=== PATIENT | male | born 1965 | race Caucasian/White ===

== ENCOUNTER 2023-06-09 14:09 | Emergency (ER) | payer OTHER, SELFPAY ==
[2023-06-09 14:12] VITALS: BP 159/106; PULSE 118; RESP 20; TEMP 36.9; O2SAT 98; BMI 33.9
--- NOTE | 2023-06-09 14:16 | XR_ITS ---
The [address] [address] Patient Name: ELLIS DELUCA MRN: [id number] date: 1965 Sex: M Assigned Patient Location: ER Current Patient Location: ED.MAIN Accession/Order Number: [id number] Exam Date: 06/09/2023 14:44 Report Date: 06/09/2023 15:16 At the request of: ERICA HUTCHINSON Procedure: XR hand LT min 3V PROCEDURE: XR hand LT min 3V HISTORY: left hand laceration COMPARISON: None. FINDINGS: BONES:Thin, small calcification along lateral margin of the head of the 5th proximal phalanx without appreciable donor site. SOFT TISSUES:No visible soft tissue swelling. EFFUSION:None visible. OTHER: Negative. XR/XR hand LT min 3V IMPRESSION: 1. Acute cortical avulsion fracture versus sequela of remote injury along the lateral side of the 5th digit proximal interphalangeal joint. 2. Otherwise no suspicious findings to suggest fracture of the bones of the hand. Electronically authenticated by: LISA CRUZ Date: 06/09/2023 15:16
--- NOTE | 2023-06-09 14:18 | ED.GENADUL1 ---
HPI - General Adult General Chief complaint: Wound/Laceration Stated complaint: LACERATION LEFT HAND Time Seen by Provider: 06/09/23 14:10 Source: patient Mode of arrival: walk-in Limitations: no limitations History of Present Illness HPI narrative: Patient is a 58-year-old male who presents to the emergency department for a laceration to the palm of the left hand. Patient was pushing an engine with his left hand when it became caught and he sustained a large V-shaped laceration to the palm of the left hand. He is right-hand dominant. Unknown last tetanus. Bleeding is well-controlled. No medications taken prior to arrival. No other associated injuries. Related Data Previous Rx's Medication Instructions Recorded cephalexin 500 mg capsule 500 mg PO Q8H 10 days #30 caps 06/09/23 hydrocodone 5 mg-acetaminophen 325 1 tab PO Q6H PRN pain 3 days #12 06/09/23 mg tablet tabs Allergies Allergy/AdvReac Type Severity Reaction Status Date / Time No Known Drug Allergies Allergy Verified 06/09/23 14:16 Review of Systems ROS Constitutional Denies: fever or chills Ears, nose, mouth, and throat Denies: throat pain Cardiovascular Denies: chest pain Respiratory Denies: shortness of breath Gastrointestinal Denies: nausea or vomiting Musculoskeletal Reports: extremity pain; Denies: back pain, extremity swelling or joint pain Integumentary/Breast Denies: rash Neurological Denies: headache Hematologic/Lymphatic Denies: easy bruising or easy bleeding PFSH PFSH Social History Smoking status: Never smoker Exam Narrative Exam Narrative: Gen.: Awake, alert, in no distress Head: Normocephalic, atraumatic ENT: Moist mucous membranes Respiratory: No respiratory distress Extremities: Moves extremities equally; large V-shaped laceration to the palm of the left hand, approximately 10 cm with no active bleeding. Normal flexion and extension of the fingers with normal sensation to the fingertips Psych: Normal mood and affect Neuro: No focal neuro deficit Skin: Warm, dry Constitutional Vital Signs, click to edit/add: Last Vital Signs Temp 98.4 F 06/09/23 14:12 Pulse 118 H 06/09/23 14:12 Resp 20 06/09/23 14:12 BP 159/106 H 06/09/23 14:12 Pulse Ox 98 06/09/23 14:12 O2 Del Method Nasal Cannula 06/09/23 14:12 Course Vital Signs Vital signs: Vital Signs Temperature 98.4 F 06/09/23 14:12 Pulse Rate 118 H 06/09/23 14:12 Respiratory Rate 20 06/09/23 14:12 Blood Pressure 159/106 H 06/09/23 14:12 Pulse Oximetry 98 06/09/23 14:12 Oxygen Delivery Method Nasal Cannula 06/09/23 14:12 Temperature 98.4 F 06/09/23 14:12 Pulse Rate 118 H 06/09/23 14:12 Respiratory Rate 20 06/09/23 14:12 Blood Pressure 159/106 H 06/09/23 14:12 Pulse Oximetry 98 06/09/23 14:12 Oxygen Delivery Method Nasal Cannula 06/09/23 14:12 Medical Decision Making MDM Narrative Medical decision making narrative: X-rays with a questionable sequela of remote injury versus cortical avulsion of the fifth finger, patient has no pain or injury over this area, doubt acute fracture. Laceration was repaired without difficulty. Please see procedure note for details. Tetanus updated in the ER. Follow-up with orthopedics for reevaluation of neurovascular status and sutures removed in 9 to 10 days with PCP. Laceration repair: Done under sterile conditions. The use of Shur-Clens prep the area. Local injection with lidocaine 1% with epi was used, approximately 20 cc. The wound was irrigated copiously with normal saline. The wound was explored there was no evidence of foreign material. The laceration was approximated with 3-0 nylon. 13 simple interrupted sutures were placed. Patient tolerated the procedure well. The patient was neurovascularly intact post. the patient had bacitracin applied to the laceration and a dry sterile dressing was place. The patient will need to follow-up in the next 9-10 days for removal Medical Records Medical records reviewed: Yes I reviewed the patient's medical records Imaging Data XR hand: Attestation: I have reviewed the pertinent imaging results. Discharge Plan Discharge Chief Complaint: Wound/Laceration Clinical Impression: Laceration of left hand Patient Disposition: Home, Self-Care Time of Disposition Decision: 15:37 Condition: Good Mode of Transportation: Private Vehicle Prescriptions / Home Meds: New hydrocodone-acetaminophen 5-325 mg tablet 1 tab PO Q6H PRN (Reason: pain) 3 Days Qty: 12 0RF Rx Instructions: DX: M79.642 cephalexin 500 mg capsule 500 mg PO Q8H 10 Days Qty: 30 0RF Instructions: Care For Your Stitches (ED), Laceration (ED) Additional Instructions: Sutures removed in 9-10 days with orthopedics or PCP Stand Alone Forms: Portal Instructions Referrals: Physician,Non-Staff, [Primary Care Provider] - 1 week Mauro Giron MD [Physician] - 1 week Discharge Date/Time: 06/09/23 15:53
[2023-06-09] MEDS: BACITRACIN 0.9 GM PACKET 1 PACKET TOPICAL (15:38)
[2023-06-09] MEDS: LIDOCAINE HCL 1%-EPINEPHRINE 1:100,000 20 ML MDV INJ (15:39)
[2023-06-09] MEDS: SODIUM CHLORIDE 0.9% IRRIG SOLUTION 1,000 ML BOTTLE 1000 ML IRR (15:39)
[2023-06-09] MEDS: ADACEL DIPH,PERTUSS(ACELL),TET VAC/PF 0.5 ML ADULT SYRINGE IM (15:46)
== END 2023-06-09 15:53 | disposition home or self-care (01) ==
PROVIDERS: Emergency Provider Emergency Medicine
DX: S61.412A Laceration without foreign body of left hand, initial encounter (principal); W45.8XXA Other foreign body or object entering through skin, initial encounter; Z23 Encounter for immunization
CPT/HCPCS: 12004; 73130; 90471; 90715; 99283